=== PATIENT | female | born 1935 | race Caucasian/White ===

== ENCOUNTER 2016-10-27 17:06 | Inpatient (IN) | payer MEDICARE ==
[~2016-10-27] VITALS: Ht 167.6 cm; Wt 57.8 kg
--- NOTE | 2016-10-27 17:39 | NUR ---
DR SEALS AT BEDSIDE FOR EVAL.
--- NOTE | 2016-10-27 17:39 | NUR ---
ACCUCHECK 71. DR SEALS AWARE.
[2016-10-27 17:53] LABS: BASOPHILS # (AUTO) 0.3 /CMM (0.0-0.2); BASOPHILS % (AUTO) 4.8 % (0.0-2.0); EOSINOPHILS # (AUTO) 0.1 /CMM (0.0-0.7); EOSINOPHILS % (AUTO) 1.3 % (0.0-6.0); HEMATOCRIT 37 % (33-45); LYMPHOCYTES # (AUTO) 1.3 /CMM (0.8-4.8); LYMPHOCYTES % (AUTO) 19.3 % (20.0-44.0); MEAN CORPUSCULAR HEMOGLOBIN 29 PG (26.0-33.0); MEAN CORPUSCULAR HGB CONC 32 g/dl (31.0-36.0); MEAN CORPUSCULAR VOLUME 91 fL (82-100); MONOCYTES # (AUTO) 0.6 /CMM (0.1-1.30); MONOCYTES % (AUTO) 8.8 % (2.0-12.0); NEUTROPHILS # (AUTO) 4.5 /CMM (1.8-8.9); NEUTROPHILS % (AUTO) 65.8 % (43.0-81.0); PLATELET COUNT (AUTO) 291 /CMM (150-450); RDW COEFFICIENT OF VARIATION 13.6 (11.5-15.0); WHITE BLOOD COUNT (AUTO) 6.8 K/uL (4.3-11.0)
[2016-10-27 18:03] LABS: CALCIUM, SERUM 8.4 mg/dL (8.5-10.1); CARBON DIOXIDE 32 mmol/L (21-32); CHLORIDE 106 mmol/L (98-107); CREATININE 0.8 mg/dL (0.6-1.3); GLUCOSE 94 mg/dL (74-106); POTASSIUM 3.2 mmol/L (3.5-5.1); SODIUM SERUM 143 mmol/L (136-145); UREA NITROGEN, BLOOD 9 mg/dL (7-18)
[2016-10-27 18:04] LABS: SERUM AMMONIA < 10 umol/L (11-32)
[2016-10-27 18:09] LABS: ALANINE AMINOTRANSFERASE 8 U/L (12-78); ALCOHOL, BLOOD < 3 mg/dL (0-0); ALKALINE PHOSPHATASE 64 U/L (46-116); ASPARTATE AMINOTRANSFERASE 12 U/L (15-37); BILIRUBIN,DIRECT 0.1 mg/dL (0.0-0.2); BILIRUBIN,TOTAL 0.4 mg/dL (0.2-1.0); TOTAL PROTEIN, SERUM 6.3 g/dL (6.4-8.2)
[2016-10-27 18:10] LABS: ACETAMINOPHEN < 10 ug/ml (10-30); SALICYLATE 1.7 mg/dL (2.8-20.0); TROPONIN I < 0.017 ng/mL (0.00-0.056)
[2016-10-27 18:14] LABS: THYROID STIMULATING HORMONE 1.567 uIU/mL (0.358-3.74)
[2016-10-27 18:18] LABS: INR 0.99 (0.87-1.13); PROTHROMBIN TIME 10.3 SECS (9.5-12.7)
[2016-10-27 18:21] LABS: APPEARANCE,URINE Slightly Cloudy (CLEAR); BILIRUBIN,URINE Negative (NEGATIVE); BLOOD, URINE Negative Ery/uL (NEGATIVE); COLOR,URINE Yellow (YELLOW); KETONES,URINE Negative (NEGATIVE); LEUKOCYTE ESTERASE ,URINE Moderate (NEGATIVE); NITRITE, URINE Positive (NEGATIVE); PROTEIN,URINE Negative (NEGATIVE); UGLUCOSE Negative (NEGATIVE)
--- NOTE | 2016-10-27 18:21 | NUR ---
CALLED NURSING SUP. FOR TELE BED
[2016-10-27 18:33] LABS: BACTERIA,URINE Many /HPF (None Seen); RBC,URINE 0-2 /HPF (0-2); SQUAMOUS EPITHELIAL CELL,UR Few /HPF (None Seen); WBC,URINE 21-50 /HPF (0-3)
[2016-10-27 18:47] LABS: EOSINOPHILS % (MANUAL) 1 % (0-4); LYMPHOCYTES % (MANUAL) 22 % (16-48); MONOCYTES % (MANUAL) 9 % (0-11.0); NEUTROPHILS % (MANUAL) 68 (42-76)
[2016-10-27] MEDS ORDERED: ACET-868 PO (18:48)
[2016-10-27] MEDS ORDERED: ASPI81TA2 PO (18:48)
[2016-10-27] MEDS ORDERED: CRAN450C PO (18:48)
[2016-10-27] MEDS ORDERED: ASCO500T9 PO (18:48)
[2016-10-27] MEDS ORDERED: FERR-58 PO (18:48)
[2016-10-27] MEDS ORDERED: DOCU-25 PO (18:48)
[2016-10-27] MEDS ORDERED: MAGN400O6 PO (18:48)
[2016-10-27] MEDS ORDERED: NA P133E RC (18:48)
[2016-10-27] MEDS ORDERED: BISA10SU8 RC (18:48)
[2016-10-27] MEDS ORDERED: BUSP5TAB3 PO (18:48)
[2016-10-27] MEDS ORDERED: FAMO-131 PO (18:48)
[2016-10-27] MEDS ORDERED: LORA-258 PO (18:48)
--- NOTE | 2016-10-27 18:53 | NUR ---
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
--- NOTE | 2016-10-27 18:59 | NUR ---
PT NEEDS MEDS BEFORE CT SCAN. ER WILL CALL WHEN READY.
[2016-10-27] MEDS ORDERED: MIDAZOLAM HCL 2 MG/2ML VIAL ONE (19:00)
--- NOTE | 2016-10-27 19:01 | NUR ---
MAYLIN CROWED, CURLY CESPEDES NP IT SOFTWARE ENGINEER
--- NOTE | 2016-10-27 19:10 | NUR ---
PT WAS GIVEN VERSED 1MG IVP PRIOR TO BE TAKEN TO CT SCAN. ACCOMPANIED PT W/ RT. ON MONITOR. STABLE.
--- NOTE | 2016-10-27 19:21 | NUR ---
PT BACK AT BEDSIDE. AWAKE. ON MONITOR. STABLE VITALS.
[2016-10-27] MEDS ORDERED: MIDAZOLAM HCL 2 MG/2ML VIAL IV ONE (19:30)
[2016-10-27] MEDS ORDERED: VANCOMYCIN 1 GM in IV D5W 250 ML IV ONE (19:30)
[2016-10-27] MEDS ORDERED: PIPERACILLIN /TAZOBACTAM 3.375 G in IV D5W 50 ML IV ONE (19:30)
--- NOTE | 2016-10-27 19:52 | NUR ---
REPORT GIVEN TO LEV. PT AWAITING TRANSFER TO FLOOR.
[2016-10-27] MEDS ORDERED: POTASSIUM CL. PREMIX PERIPHER. 200 ML ONE (19:54)
[2016-10-27 20:00] VITALS: BP 145/72
--- NOTE | 2016-10-27 20:00 | NUR ---
TELE/RN RECEIVE PATIENT FROM E.R. AWAKE, CONFUSED, NOT ANSWERING QUESTIONS APPROPRIATELY, APPEAR COMFORTABLE, NO DISTRESS NOTED, UNABLE TO DO ADMISSION AT THIS TIME DUE TO PATIENT'S MENTAL STATUS, FALL PRECAUTION INSTITUTED, PLACED CALL LIGHT IN REACH. WILL MONITOR.
[2016-10-27] MEDS: POTASSIUM CL. PREMIX PERIPHER. 50 ML IV SCH ×2 (21:32→22:47)
[2016-10-27] MEDS ORDERED: LORAZEPAM 0.5 MG TABLET PO PRN (22:30)
[2016-10-27] MEDS ORDERED: BISACODYL SUPP (10 MG) 10 MG/SUPP.RECT SUPP.RECT RC PRN (22:30)
[2016-10-27] MEDS ORDERED: Z GUARD REMEDY 2 OZ OINT TP PRN (22:30)
[2016-10-27] MEDS ORDERED: ACETAMINOPHEN 325 MG TABLET PO PRN (22:30)
[2016-10-27] MEDS ORDERED: NA PHOS,M-B/NA PHOS,DI-BA 1 EA ENEMA RC PRN (22:30)
[2016-10-27] MEDS ORDERED: ONDANSETRON HCL/PF 4 MG/2 ML VIAL IVP PRN (22:30)
[2016-10-27] MEDS ORDERED: CEFTRIAXONE 1 G in IV D5W 50 ML IV SCH (22:30)
[2016-10-27] MEDS ORDERED: MAGNESIUM HYDROXIDE 30 ML UDC PO PRN ×2 (22:30)
[2016-10-27] MEDS ORDERED: MAG HYDROX/AL HYDROX/SIMETH 30 ML UDC PO PRN (22:30)
[2016-10-27] MEDS: IV 1/2NS 1000 ML 1,000 ML IV PRN (22:58)
--- NOTE | 2016-10-27 23:40 | NUR ---
PRIMER INSERTING MACHINE OPERATOR OPENING NOTES: RECEIVED PT FROM RNLEV. PT IS ASLEEP AND IS BEING INFUSED WITH POTASSIUM CHLORIDE (2/4 BAG). AWAITING FOR ROCEPHIN TO BE BROUGHT UP ONTO THE FLOOR BY UNDERGROUND FOREMAN. PT APPEARS COMFORTABLE. NO DISTRESS NOTED. BED ALARM ACTIVATED. CALL LIGHT WITHIN PT'S REACH. BED KEPT IN LOCKED, LOWEST POSITION, AND SIDE RAILS X 2 UP. WILL CONTINUE TO MONITOR PT.
[2016-10-28] VITALS: BP 143/72
--- NOTE | 2016-10-28 00:27 | NUR ---
WORKERS COMPENSATION DEFENSE ATTORNEY NOTES: ROCEPHIN ADMINISTERED LATE D/T AWAITING FOR ROCEPHIN FROM ELEMENTARY PRINCIPAL.
[2016-10-28] MEDS: POTASSIUM CL. PREMIX PERIPHER. 50 ML IV SCH ×2 (01:06→02:10)
--- NOTE | 2016-10-28 01:19 | NUR ---
RADIOLOGY ORDERLY NOTES: NOTIFIED CESPEDES ABOUT PT HAVING BIGEMINY; PVCS 36/MIN HR 70-80S SINCE 00:20AM.
--- NOTE | 2016-10-28 02:10 | NUR ---
FAMILY COURT JUSTICE NOTES: PT RECEIVING LAST BAG (07/07) OF POTASSIUM CHLORIDE.
[2016-10-28 04:00] VITALS: BP_SYST 135; BP_SYST 147; BP_DIAS 64; BP_DIAS 65
[2016-10-28 06:28] LABS: BASOPHILS % (AUTO) 0.4 % (0.0-2.0); EOSINOPHILS # (AUTO) 0.1 /CMM (0.0-0.7); EOSINOPHILS % (AUTO) 1.7 % (0.0-6.0); HEMATOCRIT 40 % (33-45); HEMOGLOBIN 13.6 g/dL (11.5-14.8); LYMPHOCYTES # (AUTO) 1.1 /CMM (0.8-4.8); LYMPHOCYTES % (AUTO) 22.9 % (20.0-44.0); MEAN CORPUSCULAR HEMOGLOBIN 31 PG (26.0-33.0); MEAN CORPUSCULAR HGB CONC 34 g/dl (31.0-36.0); MEAN CORPUSCULAR VOLUME 90 fL (82-100); MONOCYTES # (AUTO) 0.6 /CMM (0.1-1.30); NEUTROPHILS # (AUTO) 3.1 /CMM (1.8-8.9); PLATELET COUNT (AUTO) 272 /CMM (150-450); RDW COEFFICIENT OF VARIATION 14.1 (11.5-15.0); RED BLOOD CELL COUNT(AUTO) 4.44 MIL/uL (4.0-5.2)
[2016-10-28 06:56] LABS: CHOLESTEROL 204 mg/dL (<200); HDL CHOLESTEROL 45 mg/dL (40-60); LDL 141 mg/dL (0-99); THYROID STIMULATING HORMONE 2.454 uIU/mL (0.358-3.74); TRIGLYCERIDES 94 mg/dL (30-150)
[2016-10-28 06:57] LABS: CALCIUM, SERUM 8.4 mg/dL (8.5-10.1); CARBON DIOXIDE 32 mmol/L (21-32); CHLORIDE 109 mmol/L (98-107); CREATININE 0.7 mg/dL (0.6-1.3); GLUCOSE 86 mg/dL (74-106); MAGNESIUM 1.8 mg/dL (1.8-2.4); PHOSPHORUS 3.9 mg/dL (2.5-4.9); POTASSIUM 3.8 mmol/L (3.5-5.1); SODIUM SERUM 147 mmol/L (136-145); UREA NITROGEN, BLOOD 6 mg/dL (7-18)
[2016-10-28 07:00] VITALS: BP 129/60
--- NOTE | 2016-10-28 07:22 | NUR ---
DEPARTMENT OF NATURAL RESOURCES OFFICER CLOSING NOTES: ALL NEEDS WERE ATTENDED AND ANTICIPATED FOR. PT IS ASLEEP AND IS BEING INFUSED WITH 0.45% NS AT 50ML/HR. PT APPEARS COMFORTABLE. SCDS IN PLACE. NO DISTRESS NOTED. BED ALARM ACTIVATED. CALL LIGHT WITHIN PT'S REACH. BED KEPT IN LOCKED, LOWEST POSITION, AND SIDE RAILS X 2 UP. WILL ENDORSE TO AM NURSE FOR ASHKAN.
--- NOTE | 2016-10-28 07:29 | NUR ---
CORPORATE INTERN CLOSING NOTES: PT IS ALSO ON TELE AND READING IS TELE SR 73. ENDORSED TO AM NURSE FOR ASHKAN.
--- NOTE | 2016-10-28 07:30 | NUR ---
PT RECEIVED RESTING COMFORTABLY IN BED WITH EYES CLOSED. NO S/S OR C/O PAIN OR DISTRESS NOTED. SIDE RAILS UP X2, CALL LIGHT LEFT WITHIN REACH. WILL CONTINUE PLAN OF CARE.
[2016-10-28] MEDS ORDERED: Medication Not On Formulary EA (Cranberry Fruit Concentrate (Cranberry) 450 MG) PO SCH (09:00)
[2016-10-28] MEDS: ASCORBIC ACID 500 MG TABLET PO SCH (09:20)
[2016-10-28] MEDS: FAMOTIDINE (20 MG) 20 MG TABLET PO SCH ×2 (09:20→17:24)
[2016-10-28] MEDS: busPIRone 5 MG TABLET PO SCH ×2 (09:20→17:24)
[2016-10-28] MEDS: FERROUS SULFATE (325 MG) 325 MG/TAB TABLET PO SCH (09:20)
[2016-10-28] MEDS: DOCUSATE SODIUM 100 MG CAPSULE PO SCH ×2 (09:20→17:24)
[2016-10-28] MEDS: ASPIRIN 81 MG TAB.CHEW PO SCH (09:20)
[2016-10-28 16:00] VITALS: BP 128/71
--- NOTE | 2016-10-28 19:43 | NUR ---
CHANGE OF SHIFT REPORT PT RESTING COMFORTABLY IN BED WITH EYES CLOSED. NO S/S OR C/O PAIN OR DISTRESS NOTED. SIDE RAILS UP X2, CALL LIGHT LEFT WITHIN REACH. PT KEPT CLEAN, DRY, AND COMFORTABLE. NO SIGNIFICANT CHANGES SINCE PREVIOUS SHIFT. REPORT GIVEN TO CRISTELA HOGUE.
--- NOTE | 2016-10-28 19:44 | NUR ---
RN NOTES RECEIVED PT AWAKE, NO SOB, NOT IN DISTRESS, ON ROOM AIR AND TOLERATED WELL. PT IS ALERT, ORIENTED X1 WITH CONFUSION. DENIES ANY PAIN, NAUSEA AND VOMITING AT THIS TIME. TELE MONITOR READS SINUS RHYTHM WITH BBB, PAC'S WITH HEART RATE AT 84. IV ACCESS ON LEFT AC AND LEFT FORE ARM PATENT AND INTACT WITH ONGOING IVF INFUSING WELL. KEPT BED IN THE LOWEST POSITION, LOCKED, SIDE RAILS X3 UP, BED ALARM ON WITH CALL LIGHT WITH IN REACH. KEPT COMFORTABLE AND ATTENDED. WILL CONTINUE TO MONITOR PT.
[2016-10-28 20:00] VITALS: BP 149/68
--- NOTE | 2016-10-28 20:04 | NUR ---
RN NOTES PT IS VERY ANXIOUS, GETTING OUT OF BED AND WANTS TO WALK UNASSISTED. PT HAS VERY UNSTEADY GAIT, REFUSED TO USE FWW AND REFUSED TO BE ASSISTED. ATIVAN 0.5 MG TAB GIVEN PO AND TOLERATED WELL. PLACED PT IN BED, BED ALARM ON. FREQUENT VISUAL CHECK DONE. WILL CONTINUE TO MONITOR PT.
--- NOTE | 2016-10-28 21:32 | NUR ---
RN NOTES SEEN AND EXAMINED BY CURLY SALCEDO NP WITH AM LABS ORDERED.
[2016-10-28 22:00] VITALS: BP 149/68
[2016-10-28] MEDS: IV 1/2NS 1000 ML 1,000 ML IV PRN (22:05)
[2016-10-28] MEDS: CEFTRIAXONE 1 G in IV D5W 50 ML IV SCH (22:06)
[2016-10-29] VITALS (7 sets, daily range): BP systolic 130–160; BP diastolic 61–90
[2016-10-29 06:50] LABS: BASOPHILS % (AUTO) 0.5 % (0.0-2.0); EOSINOPHILS # (AUTO) 0.1 /CMM (0.0-0.7); EOSINOPHILS % (AUTO) 1.2 % (0.0-6.0); HEMATOCRIT 43 % (33-45); HEMOGLOBIN 14.6 g/dL (11.5-14.8); LYMPHOCYTES # (AUTO) 1.4 /CMM (0.8-4.8); LYMPHOCYTES % (AUTO) 22.6 % (20.0-44.0); MEAN CORPUSCULAR HEMOGLOBIN 31 PG (26.0-33.0); MEAN CORPUSCULAR HGB CONC 34 g/dl (31.0-36.0); MEAN CORPUSCULAR VOLUME 91 fL (82-100); MONOCYTES # (AUTO) 0.7 /CMM (0.1-1.30); MONOCYTES % (AUTO) 10.7 % (2.0-12.0); PLATELET COUNT (AUTO) 284 /CMM (150-450); RDW COEFFICIENT OF VARIATION 14.1 (11.5-15.0); RED BLOOD CELL COUNT(AUTO) 4.76 MIL/uL (4.0-5.2); WHITE BLOOD COUNT (AUTO) 6.2 K/uL (4.3-11.0)
[2016-10-29 07:15] LABS: CALCIUM, SERUM 8.9 mg/dL (8.5-10.1); CARBON DIOXIDE 29 mmol/L (21-32); CHLORIDE 107 mmol/L (98-107); CREATININE 0.6 mg/dL (0.6-1.3); GLUCOSE 87 mg/dL (74-106); POTASSIUM 3.5 mmol/L (3.5-5.1); SODIUM SERUM 145 mmol/L (136-145); UREA NITROGEN, BLOOD 6 mg/dL (7-18)
--- NOTE | 2016-10-29 08:12 | NUR ---
RN NOTES PT ASLEEP, BREATHING REGULAR AND UNLABORED,ON ROOM AIR AND TOLERATED WELL. VITAL SIGNS STABLE, AFEBRILE. TELE MONITOR READS SINUS RHYTHM WITH BBB AND PAC'S AT 78. NO COMPLAIN OF PAIN, NO EPISODE OF NAUSEA AND VOMITING.PT STILL NOTED WITH CONFUSION, REORIENT NEEDED. STILL WITH EPISODE OF AGITATION AND RESTLESSNESS. KEPT LEAN AND DRY. ALL NEEDS MET. FALL PRECAUTION OBSERVED. ENDORSED TO MORNING RN FOR CONTINUITY OF CARE.
--- NOTE | 2016-10-29 08:13 | NUR ---
FEATHER CURLING MACHINE OPERATOR NOTES RECEIVED PATIENT IN BED, AWAKE. PATIENT CONFUSED, REORIENT PATIENT NEEDED. PATIENT IS CALM AND COOPERATIVE. NO ACUTE DISTRESS, NO SOB NOTED. TELEMETRY SR 77 WITH BBB AND PACs. IV SITE INTACT AND PATENT. KEPT PATIENT SAFE AND COMFORTABLE. BED IN LOWEST POSITION, SIDERAILS UP X2. CALL LIGHT WITHIN REACH. WILL CONTINUE TO MONITOR ACCORDINGLY.
[2016-10-29] MEDS: ASCORBIC ACID 500 MG TABLET PO SCH (09:51)
[2016-10-29] MEDS: DOCUSATE SODIUM 100 MG CAPSULE PO SCH ×2 (09:52→18:11)
[2016-10-29] MEDS: FAMOTIDINE (20 MG) 20 MG TABLET PO SCH ×2 (09:52→18:11)
[2016-10-29] MEDS: ASPIRIN 81 MG TAB.CHEW PO SCH (09:52)
[2016-10-29] MEDS: busPIRone 5 MG TABLET PO SCH ×2 (09:52→18:11)
[2016-10-29] MEDS: FERROUS SULFATE (325 MG) 325 MG/TAB TABLET PO SCH (09:52)
--- NOTE | 2016-10-29 19:00 | NUR ---
RN NOTES PATIENT IN BED RESTING, PATIENT IS CALM AND COOPERATIVE. NO ACUTE DISTRESS, NO SOB NOTED. ALL NEEDS ATTENDED AND PROVIDED. KEPT PATIENT SAFE AND COMFORTABLE. BED IN LOWEST POSITION, LOCKED, CALL LIGHT WITHIN REACH. ENDORSED TO MELTER LOADER RN FOR CONTINUITY OF CARE.
[2016-10-29] MEDS ORDERED: ENOXAPARIN SODIUM 40 MG/0.4 ML DISP.SYRIN SQ SCH (21:00)
[2016-10-29] MEDS: CEFTRIAXONE 1 G in IV D5W 50 ML IV SCH (23:00)
[2016-10-30] MEDS: IV 1/2NS 1000 ML 1,000 ML IV PRN (01:19)
--- NOTE | 2016-10-30 07:39 | NUR ---
RN MS OPENING NOTES RECEIVED PATIENT IN BED, AWAKE, HOB ELEVATED, NO SOB OR DISTRESS NOTED. A/O X1-2 VERBALLY RESPONSIVE. IV INTACT AND PATENT. KEEP PATIENT CLEAN AND COMFORTABLE IN BED, CALL LIGHT WITHIN PATIENT REACH, WILL CONTINUE TO MONITOR ACCORDINGLY.
[2016-10-30 08:00] VITALS: BP 148/70
[2016-10-30] MEDS: DOCUSATE SODIUM 100 MG CAPSULE PO SCH (08:51)
[2016-10-30] MEDS: ASPIRIN 81 MG TAB.CHEW PO SCH (08:51)
[2016-10-30] MEDS: ASCORBIC ACID 500 MG TABLET PO SCH (08:51)
[2016-10-30] MEDS: FAMOTIDINE (20 MG) 20 MG TABLET PO SCH (08:52)
[2016-10-30] MEDS: busPIRone 5 MG TABLET PO SCH (08:52)
[2016-10-30] MEDS: FERROUS SULFATE (325 MG) 325 MG/TAB TABLET PO SCH (08:52)
[2016-10-30 16:00] VITALS: BP 131/60
--- NOTE | 2016-10-30 16:25 | NUR ---
RN NOTES DISCHARGE INSTRUCTIONS GIVEN TO PATIENT AND NURSING FACILITY AND ABLE TO UNDERSTAND. PATIENT LEFT VIA WHEELCHAIR ACCOMPANIED WITH POLY DAVE IN STABLE CONDITION. NO SOB OR DISTRESS NOTED. VITALS SIGNS CHECKED AND RECORDED. MD AND CHARGE NURSE AWARE.
== END 2016-10-30 16:36 | DRG 689 ==
LOC: ER 17:09 → TELE 19:49 → MED 10-29 16:27
PROVIDERS: ADMIT Legal Medicine; ATTEND Legal Medicine
DX: N39.0 Urinary tract infection, site not specified (principal); G93.41 Metabolic encephalopathy; E44.0 Moderate protein-calorie malnutrition; B96.20 Unspecified Escherichia coli [E. coli] as the cause of diseases classified elsewhere; E87.6 Hypokalemia; F03.90 Unspecified dementia, unspecified severity, without behavioral disturbance, psychotic disturbance, mood disturbance, and anxiety; F41.9 Anxiety disorder, unspecified; Z86.73 Personal history of transient ischemic attack (TIA), and cerebral infarction without residual deficits; E88.09 Other disorders of plasma-protein metabolism, not elsewhere classified; Z68.20 Body mass index [BMI] 20.0-20.9, adult
CPT/HCPCS: 36415; 70450-TC; 71010-TC; 80048-TC; 80061-TC; 80076-TC; 80305; 81000-TC; 82140-TC; 82962-TC; 83735-TC; 84100-TC; 84443-TC; 84484-TC; 85025-TC; 85730-TC; 87081-TC; 87086-TC; 87186-TC; 97001-TC; A4606; G0480; J0696; J1650; J2250; J2543; J3370; J3480; J3490; J7060; Z7610

== ENCOUNTER 2018-08-17 19:06 | Emergency (ER) | payer MEDICAID, MEDICARE ==
[~2018-08-17] VITALS: Ht 167.6 cm; Wt 59.0 kg
[~2018-08-17 19:06] MED LIST: ACET-868 PO; ASCO500T9 PO; ASPI-1169 PO; BISA10SU8 RC; BUSP5TAB3 PO; CRAN450C PO; DOCU-141 PO; FAMO-131 PO; FERR325T23 PO; LORA-258 PO; MAGN400O6 PO; NA P133E RC
--- NOTE | 2018-08-17 19:18 | NUR ---
PT PEDRO FROM [facility] C/O R SIDE BODY PAIN S/P UNWITNESSED GLF +ABRASION R FOREARM. PT AOX1. PT ON MONITOR IN BED 10. WILL CONTINUE TO MONITOR.
[2018-08-17 19:32] VITALS: BP 159/86
[2018-08-17] MEDS: BACITRACIN ZINC OINT PACKET 1 EA PACKET TP ONE (20:34)
--- NOTE | 2018-08-17 20:49 | NUR ---
CALLED FOR BLS TRANSPORT BACK TO SENDING FACILITY, ETA 45-60 MIN ([phone]), TRIP #[id number]
--- NOTE | 2018-08-17 22:15 | NUR ---
Patient discharged to home in stable condition. Written and verbal after care instructions given. Patient verbalizes understanding of instruction.
== END 2018-08-17 22:16 | disposition home or self-care (01) ==
LOC: ER 19:08
DX: S50.311A Abrasion of right elbow, initial encounter (principal); R13.10 Dysphagia, unspecified; G20 Parkinson's disease; F02.80 Dementia in other diseases classified elsewhere, unspecified severity, without behavioral disturbance, psychotic disturbance, mood disturbance, and anxiety; F41.9 Anxiety disorder, unspecified; Z79.82 Long term (current) use of aspirin; W18.09XA Striking against other object with subsequent fall, initial encounter; Y93.89 Activity, other specified; Y92.89 Other specified places as the place of occurrence of the external cause; Y99.8 Other external cause status
CPT/HCPCS: 70450-TC